=== PATIENT | female | born 1995 | race Caucasian/White ===

== ENCOUNTER 2023-12-12 13:12 | Outpatient (CLI) | payer OTHER, SELFPAY ==
--- NOTE | ~2023-12-12 | US_ITS ---
EXAMINATION: US OB <= 14 weeks fetus DATE: 12/12/2023 13:36 INDICATION: with inconclusive viability. TECHNIQUE: Real-time transabdominal pelvic ultrasound was performed. COMPARISON: None. FINDINGS: The uterus measures 9.8 x 6.1 x 6.3 cm. There is an intrauterine gestational sac. A yolk sac is ident ified. The crown rump length measures 1.9 cm, which correlates with an estimated gestational a ge of 8 weeks and 3 day(s) (+/-) 5 day(s). heart motion is identified measuring 171 beats per m inute (bpm) by M-mode Doppler. The ovaries are not visualized. There is no free fluid in the pelvis. IMPRESSION: 1. Single living intrauterine gestation with estimated date of delivery of 07/20/2024. Reviewed, dictated and finalized at location E. IMPRESSION: 1. Single living intrauterine gestation with estimated date of delivery of 07/03.
== END 2023-12-12 13:13 ==
LOC: MICIMG 13:14
PROVIDERS: PCP Advanced Practice Midwife; Visit Provider Advanced Practice Midwife
DX: O36.80X0 Pregnancy with inconclusive fetal viability, not applicable or unspecified (principal); Z3A.00 Weeks of gestation of pregnancy not specified
CPT/HCPCS: 76801

== ENCOUNTER 2024-02-19 14:43 | Outpatient (CLI) | payer OTHER, SELFPAY ==
--- NOTE | ~2024-02-19 | US_ITS ---
EXAMINATION: US OB /maternal detail DATE: 02/19/2024 15:14 INDICATION: Assess anatomy during second trimester . TECHNIQUE: Multiple obstetric sonographic images performed. FINDINGS: There is a single living fetus in transverse lie with vertex to maternal left. The placenta is anter ior and low-lying with caudal margin approximately 3.5 cm from the region of the internal cervical os which is poorly visualized on transabdominal imaging. Amniotic fluid volume is subjectively normal. heart rate of 139 beats per minute. The following anatomy was identified as normal: Ventricles, choroid plexus, falx and cava septum pellucidum Cerebellum and cisterna magna Nuchal fold Upper lip Spine Heart Diaphragm Stomach Kidneys Bladder 3 vessel cord and cord insertion Bilateral upper and lower extremities including hands and feet The following biometric data were obtained: BPD: 4.1 cm -> 18 weeks 3 days Head circumference: 15.6 cm -> 18 weeks 4 days Abdominal circumference: 12.8 cm -> 18 weeks 2 days Femur length: 2.9 cm -> 18 weeks 6 days These measurements are concordant. Head circumference to abdominal circumference ratio: 1.22 (normal range 1.09-1.27). Estimated weight: 247 g (+/-) 37 g. or 9 oz. (+/-) 1 oz. IMPRESSION: 1. Single living fetus with transverse lie with heart rate of 139 bpm. 2. Gestational age by ultrasound of 18 weeks 4 day(s) (+/-) 1 week 2 day(s) with ultrasound estimat ed date of delivery (KATLYN) of 07/18/2024. Estimated weight is 63rd percentile by Hadlock criteria when 07/20/2024 is used as the KATLYN. Please correlate with clinical information or earlier ultrasounds for most accurate KATLYN. 3. Normal survey. Reviewed, dictated and finalized at location B. IMPRESSION: 1. Single living fetus with transverse lie with heart rate of 139 bpm. 2. Gestational age by ultrasound of 18 weeks 4 day(s) (+/-) 1 week 2 day(s) w ith ultrasound estimated date of delivery (KATLYN) of 07/18/2024. Estimated w eight is 63rd percentile by Hadlock criteria when 07/20/2024 is used as the KATLYN. Please correlate with clinical information or earlier ultrasounds for most acc urate KATLYN. 3. Normal survey.
== END 2024-02-19 14:44 | disposition home or self-care (01) ==
LOC: MICIMG 14:43
PROVIDERS: PCP Advanced Practice Midwife; Visit Provider Advanced Practice Midwife
DX: Z36.9 Encounter for antenatal screening, unspecified (principal); Z3A.18 18 weeks gestation of pregnancy
CPT/HCPCS: 76805

== ENCOUNTER 2024-05-27 15:20 | Outpatient (CLI) | payer OTHER, SELFPAY ==
--- NOTE | ~2024-05-27 | US_ITS ---
EXAMINATION: US OB follow up DATE: 05/27/2024 15:38 INDICATION: Size greater than dates. Third trimester. TECHNIQUE: Real-time ultrasound of the pelvis was performed. COMPARISON: Ultrasound 02/19/2024, 12/12/2023 FINDINGS: There is a single living fetus in vertex presentation. The placenta is anterior. heart rate is 140 beats per minute (bpm). The amniotic fluid index is 16.9 cm, which is normal. The following biometric data were obtained: Biparietal diameter (BPD): 8.2 cm; head circumference (HC): 29.6 cm; abdominal circumference (AC): 28 .1 cm; femur length (FL): 6.1 cm. These measurements are concordant. Estimated weight is 1905 g +/- 286 g, which correlates with the 34th percentile when 07/20/24 is used as estimated date of delivery. As single measurements, these parameters are each equal to the following estimated gestational ages: BPD: 33 weeks 1 days. HC: 32 weeks 5 days. AC: 32 weeks 1 days. FL: 31 weeks 4 days. estimated gestational age based solely on measurements from this exam is 32 weeks 3 days +/- 2 weeks 2 days. IMPRESSION: 1. Single living fetus in vertex presentation. 2. Estimated weight is 1905 g +/- 286 g, which correlates with the 34th percentile when 5 is used as estimated date of delivery. This date was set by ultrasound on 12/12/2023. Reviewed, dictated and finalized at location A. GEMENT DEVELOPER IMPRESSION: 1. Single living fetus in vertex presentation. 2. Estimated weight is 1905 g +/- 286 g, which correlates with the 34th percentile when 07/20/24 is used as estimated date of delivery. This date was se t by ultrasound on 12/12/2023.
== END 2024-05-27 15:21 | disposition home or self-care (01) ==
LOC: MICIMG 15:21
PROVIDERS: PCP Advanced Practice Midwife; Visit Provider Advanced Practice Midwife
DX: O36.63X0 Maternal care for excessive fetal growth, third trimester, not applicable or unspecified (principal); Z3A.00 Weeks of gestation of pregnancy not specified
CPT/HCPCS: 76816

== ENCOUNTER 2024-06-09 13:03 | Outpatient (CLI) | payer OTHER, SELFPAY ==
[2024-06-09 13:32] VITALS: BP 131/69; PULSE 106; RESP 16; TEMP 36.7; BMI 33.8
[2024-06-09 13:46] VITALS: BP 119/66; PULSE 108
[2024-06-09 13:49] LABS: Basophils Percent Auto 0.2 % (0.2-1.2); Eosinophils Percent Auto 0.3 % (0-4.4); Hematocrit 34.3 % (37.0-47.0); Hemoglobin 11.3 g/dL (12.0-15.0); Immature Granulocyte Absolute 0.05 K/mm3 (0.00-0.031); Immature Granulocyte Percent A 0.5 % (0-0.5); Lymphocytes Absolute Auto 2.14 K/mm3 (0.9-3.2); Lymphocytes Percent Auto 19.7 % (18.3-44.2); Mean Corpuscular HGB Conc 32.9 g/dl (32-36); Mean Corpuscular Hemoglobin 32.3 pg (26-34); Mean Platelet Volume 10.1 fl (7.4-10.4); Monocytes Absolute Auto 0.4 K/mm3 (0.1-0.6); Monocytes Percent Auto 3.8 % (2.6-8.5); Neutrophils Absolute Auto 8.2 K/mm3 (1.3-6.7); Neutrophils Percent Auto 75.5 % (45.5-73.1); Platelet Count Result 172 k/mm3 (150-375); Red Cell Distribution Width 13.1 % (11.5-14.5); White Blood Count 10.9 K/mm3 (4.5-10.0)
[2024-06-09 13:54] VITALS: BP 119/66; PULSE 108
[2024-06-09 13:58] LABS: Creatinine Urine 82.3 mg/dL
[2024-06-09 14:01] VITALS: BP 113/67; PULSE 105
[2024-06-09 14:10] LABS: Alanine Aminotransferase 13 U/L (6-35); Alkaline Phosphatase 84 U/L (38-126); Anion Gap 4 mmol/L (4-12); Aspartate Amino Transferase 18 U/L (14-36); Bilirubin,Total 0.4 mg/dL (0.2-1.3); Blood Urea Nitrogen 8 mg/dL (7-17); Calcium 8.3 mg/dL (8.4-10.2); Carbon Dioxide 20 mmol/L (22-30); Chloride 110 mmol/L (98-107); Estimated Glomerular Filt Rate > 60; Glucose 110 mg/dL (65-110); Potassium 3.6 mmol/L (3.4-5.0); Sodium 134 mmol/L (137-145); Uric Acid 4.7 mg/dL (2.5-7.5)
[2024-06-09 14:14] LABS: Total Protein Urine Random < 5 mg/dL; Ur Ttl Prot Creatinine Ratio < 0.06 mg/mg (0-0.20)
[2024-06-09 14:16] VITALS: BP 117/69; PULSE 105
[2024-06-09 14:24] LABS: Add Urine Microscopic? YES; Appearance Urine Clear (Clear); Bacteria Urine 1+ /hpf; Bilirubin Urine Negative (Negative); Blood Urine Negative (Negative); Color Urine Yellow (Yellow); Glucose Urine UA Negative (Negative); Ketones Urine Negative (Negative); Leukocyte Esterase Ur 1+ LEU/UL (Negative); Need Manual Microscopic Reviewed; Nitrate Urine Negative (Negative); Non Pathogenic Casts 0-2; Protein Urine Negative (Negative); RBC Urine 0-2 /hpf (0-2); Specific Grav Ur 1.018 (1.001-1.035); Squamous Epithelial Cell Urine Occasional /hpf (Few); Urobilinogen Urine 0.2 mg/dL (<2.0)
[2024-06-09 14:31] VITALS: BP 121/67; PULSE 104
--- NOTE | 2024-06-09 14:37 | PC.NURSE ---
Dr. Patton informed of this pt that was sent over from the office due to BP's being higher than her normal and headache earlier today with double vision at times. Informed of reactive NST, BP's, lab results. OK to discharge pt to home, but would like pt sent home with 24 hr urine supplies for baseline 24 hr urine.
== END 2024-06-09 14:49 | disposition home or self-care (01) ==
LOC: ANHOBOP 13:16 → ANHOBPP 13:18
PROVIDERS: Visit Provider Obstetrics & Gynecology Gynecology
DX: O13.9 Gestational [pregnancy-induced] hypertension without significant proteinuria, unspecified trimester (principal); Z3A.00 Weeks of gestation of pregnancy not specified
CPT/HCPCS: 36415; 59025; 80053; 81001; 82570; 84156; 84550; 85025; 87086

== ENCOUNTER 2024-06-10 17:27 | Outpatient (NON) | payer OTHER, SELFPAY ==
[2024-06-10 17:42] VITALS: BMI 33.8
[2024-06-10 18:39] LABS: Collection Time Urine 24 HOURS
[2024-06-10 18:40] LABS: Patient Weight 222 Lbs; Total Volume 24 Hour Urine 1900 ml
[2024-06-10 18:43] LABS: Serum Creat 0.49
[2024-06-10 18:55] LABS: Creatinine Clearance Urine 196.9 ml/min (75-125)
[2024-06-10 19:12] LABS: Total Protein Urine 24 Hr 95 mg/24hr (28-141); Total Protein Urine Random < 5 mg/dL
== END 2024-06-10 17:28 | disposition home or self-care (01) ==
LOC: ANHOBOP 17:40
PROVIDERS: Visit Provider Obstetrics & Gynecology Gynecology
DX: O13.9 Gestational [pregnancy-induced] hypertension without significant proteinuria, unspecified trimester (principal); Z3A.00 Weeks of gestation of pregnancy not specified
CPT/HCPCS: 81050; 82575; 84156

== ENCOUNTER 2024-07-09 23:51 | Observation (INO) | payer OTHER, SELFPAY ==
--- OUTSIDE RECORDS SUMMARY | 2024-07-09 23:37 | XMS_ITS | Continuity of Care Document ---
Author Name [facility] Organization [facility] Care Team Providers Care Log Data Technician Name Role Phone [facility] Unavailable Unavailable Medications Combined list of outpatient medications from Department of Defense and Veterans Affairs facilities.Medications provided include 1) outpatient medications from the last 15 months, and 2) patient-reported medications. Medication Details Route Status Patient Instructions Prescription Expires Prescription Number Last Dispense Date Ordering Provider Order Date Order Qty Source AZITHROMYCI N (AZITHROMYC IN), 250MG, TABLET, ORAL, [employer], 6 ea. BLIST PACK Active [id number] 2023 6 Pharmac y Data Transac tion Service Facilit y LEVOCETIRIZ INE DIHYDROCHLO RIDE (LEVOCETIRI ZINE DIHYDROCHLO RIDE), 5 MG, TABLET, ORAL, [facility], 90 ea. BOTTLE Active [id number] 2023 10 Pharmac y Data Transac tion Service Facilit y PROMETHAZIN E-DM (promethazi ne HCl/dextrom ethorphan HBr), 6.25-15/5, SYRUP, ORAL, [facility], 473 ml BOTTLE Active [id number] 2023 120 Pharmac y Data Transac tion Service Facilit y Allergies, Adverse Reactions, Alerts Combined list of allergies from Department of Defense and Veterans Affairs facilities. It does not include entries that were removed or entered in error. Substance Category Reaction Severity Reaction type Status Date Reported Comments Source No Known Allergies Drug allergy (disorder) active 12/13/2020 [facility] Immunizations Combined list of available immunizations from the Department of Defense and Veterans Affairs facilities. 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 Status Comments Source influenza, injectable, quadrivalent- pf 2022 zzRig ht Arm [id number] 150 GlaxoSmithKli ne complet ed influenza , injectabl e, quadrival ent-pf 06/11/22 Given Ambulat ory Pharmac y Influenza, injectable, quadrivalent, preservative free 1 2022 Unknown, Provider [id number] Jade LeivaKline (SKB) complet ed Influenza , injectabl e, quadrival ent, preservat sumanth free DoD COVID Vaccine Pfizer 2021 zzMaximiliano ht Arm [id number] PFIZER complet ed COVID Vaccine Pfizer 08/27/21 Given Ambulat ory Pharmac y SARS-COV-2 (COVID-19) vaccine, mRNA, spike protein, LNP, preservative free, 30 mcg/0.3mL dose 1 2021 Unknown, Provider [id number] Pfizer, Inc (PFR) complet ed SARS-COV- 2 (COVID-19 ) vaccine, mRNA, spike protein, LNP, preservat sumanth free, 30 mcg/0.3mL dose DoD Encounters Combined list of: 1) Encounters from Department of Veterans Affairs facilities going backup to the last 18 months, not all VA inpatient encounters are included; 2) Encounters from the Department of Defense facilities going backup to 280 months. Location Location Details Encounter Type Encounter Number Reason For Visit Attending Provider ADM Date DC Date Status Disposition Source [facility] Exception al Family Mbr Pgm) OUTPATIENT [id number] Notes Entered by: FROYLAN PATRICK 17 Feb 2020 0740 ------- ------- ------- ------- -- Command Sponsor [facility] 1040- HEMA TYLER 02/16 Released w/o Limitations [facility] Excepti onal Family Mbr Pgm) [facility] Women's Health) TELE CONSULT [id number] Notes Entered by: ARLYN MITCHELL 11 Dec 2020 1044 ------- ------- ------- ------- -- pregnan cy test JORGE ZUÑIGA 12/11 [facility] Women's Health) [facility] Women's Health) OUTPATIENT [id number] Notes Entered by: SHANNON SUNSHINE TOLU 13 Dec 2020 1416 ------- ------- ------- ------- -- vitals for pregnan cy CSSP JORGE ZUÑIGA TOLU 12/13 Released w/o Limitations [facility] Women's Health) [facility] Clinic Team C) TELE CONSULT [id number] Notes Entered by: AMISH HAMILTON 15 Feb 2021 1405 ------- ------- ------- ------- -- Network Results -OBGYN- Report Date JORGE ZUÑIGA TOLU 02/15 [facility] Clinic Team C) [facility] Women's Health) TELE CONSULT [id number] Notes Entered by: LETICIA STAPLES 17 May 2021 0923 ------- ------- ------- ------- -- breast pump KAYLAN BARBER 05/17 [facility]'s Health) [facility] Clinic Team C) TELE CONSULT [id number] Notes Entered by: AMISH HAMILTON 09 Jun 2021 1346 ------- ------- ------- ------- -- Network Results -OBGYN- 06 Mar 2021 PAGE GEORGE 06/09 [facility] Clinic Team C) [facility] Women's Health) TELE CONSULT [id number] Notes Entered by: DOMENICA SUNG 26 Jul 2021 1131 ------- ------- ------- ------- -- Network Results -Labs-0 04 May 2021 PAGE GEORGE 07/26 [facility]) [facility] Clinic Team C) OUTPATIENT [id number] Back Pain and coughin g BEBA CASIANO 09/21 [facility] Limitations [facility] OUTPATIENT [id number] LETICIA SACHI W 09/24 [facility]ased w/o Limitations [facility]) [facility] Clinic Team C) OUTPATIENT [id number] f/u [facility] ER- pneumon ia BEBA CASIANO 10/05 [facility] w/o Limitations [facility]) [facility]) TELE CONSULT [id number] Notes Entered by: Shahzad GONZALEZ 31 Oct 2021 1544 ------- ------- ------- ------- -- Needs Dysplas ia JORGE Cano 10/31 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 21 PAGE GEORGE 12/07 [facility]) [facility]) OUTPATIENT [id number] Pap (had abnorma l off-bas e LSIL/HP V pos, Dec 20, Apr 22, Sep 21) KELSY CORONA 12/19 Released w/o Limitations [facility] Women's Health) [facility] Women's [facility]) OUTPATIENT [id number] Colposc opy KELSY CORONA 01/14 Released w/o Limitations [facility] Women's Health) [facility] Women's [facility]) TELE CONSULT [id number] Notes Entered by: UZAIR CORONA 21 Jan 2022 1057 ------- ------- ------- ------- -- Needs 1 year f/u JORGE ZUÑIGA 01/21 Released to Self Care [facility] Women's [facility]) [facility] Clinic Team C) TELE CONSULT [id number] Notes Entered by: BEBA CASIANO 22 Jan 2022 1753 ------- ------- ------- ------- -- BEBA Sandoval 01/22 [facility] Clinic Team C) [facility] Clinic Team C) TELE CONSULT [id number] Notes Entered by: CRYSTAL PEACE 13 May 2022 0723 ------- ------- ------- ------- -- KAYLAN Kumar 05/13 Released to Self Care [facility]) [facility] Optometry ) OUTPATIENT [id number] eye exam ASIF GOODWIN 07/11 Released w/o Limitations [facility] Optomet ry) Procedures Combined list of: 1) Procedures from Department of Veterans Affairs facilities [facility], not all VA non-surgical procedures are included; 2) All procedures from the Department of Defense facilities. Procedure Procedure Type Code Date Perfomer Comments Sourc e No data available for this section Ambulato ry Pharmacy DETERMINATION OF REFRACTIVE STATE DoD TELE ASSESS & MGT SRV PROV QUAL NONPHYS HLTH CARE PRO TO EST PAT,PARENT,GUARD NOT ORIG REL ASSESS & MGT SRV PROV W/IN PREV 7 DAYS NOR LEAD ASSESS & MGT SRV/PX W/IN NXT 24 HR/SOON APT;5-10 MIN MED DIS DoD TELE ASSESS & MGT SRV PROV QUAL NONPHYS HLTH CARE PRO TO EST PAT,PARENT,GUARD NOT ORIG REL ASSESS & MGT SRV PROV W/IN PREV 7 DAYS NOR LEAD ASSESS & MGT SRV/PX W/IN NXT 24 HR/SOON APT;5-10 MIN MED DIS [facility] BRIEF EMOTIONAL/BEHAVIORAL ASSESSMENT (EG, DEPRESSION INVENTORY, ATTENTION-DEFICIT/HY PERACTIVITY DISORDER [ADHD] SCALE), WITH SCORING AND DOCUMENTATION, PER STANDARDIZED INSTRUMENT [facility] BRIEF EMOTIONAL/BEHAVIORAL ASSESSMENT (EG, DEPRESSION INVENTORY, ATTENTION-DEFICIT/HY PERACTIVITY DISORDER [ADHD] SCALE), WITH SCORING AND DOCUMENTATION, PER STANDARDIZED INSTRUMENT DoD TELE ASSESS & MGT SRV PROV QUAL NONPHYS HLTH CARE PRO TO EST PAT,PARENT,GUARD NOT ORIG REL ASSESS & MGT SRV PROV W/IN PREV 7 DAYS NOR LEAD ASSESS & MGT SRV/PX W/IN NXT 24 HR/SOON APT;5-10 MIN MED DIS [facility] INFECTIOUS AGENT ANTIGEN DETECTION BY IMMUNOASSAY WITH DIRECT OPTICAL (IE, VISUAL) OBSERVATION; INFLUENZA DoD TELE ASSESS & MGT SRV PROV QUAL NONPHYS HLTH CARE PRO TO EST PAT,PARENT,GUARD NOT ORIG REL ASSESS & MGT SRV PROV W/IN PREV 7 DAYS NOR LEAD ASSESS & MGT SRV/PX W/IN NXT 24 HR/SOON APT;5-10 MIN MED DIS DoD TELE ASSESS & MGT SRV PROV QUAL NONPHYS HLTH CARE PRO TO EST PAT,PARENT,GUARD NOT ORIG REL ASSESS & MGT SRV PROV W/IN PREV 7 DAYS NOR LEAD ASSESS & MGT SRV/PX W/IN NXT 24 HR/SOON APT;5-10 MIN MED DIS 021 [facility] BEHAVIORAL HEALTH OUTREACH SERVICE (PLANNED APPROACH TO REACH A TARGETED POPULATION) 020 DoD Behavioral health outreach service (planned approach to reach a targeted population) JERARDO MERLOS [facility] Non-Physician Phone Call To Patient/Provider Brief (5-10min) Non-Physician Phone Call To Patient/Provider Brief (5-10min) [id number] JORGE ZUÑIGA [facility] Psychometric Emotional / Behavioral A e ment Psychometric Emotional / Behavioral Assessment [id number] KELSY CORONA [facility] Colposcopy Cervix With Biopsy(s) With Endocervical Curettage Colposcopy Cervix With Biopsy(s) With Endocervical Curettage [id number] KELSY CORONA Colposcopy Cervix With Biopsy(s) At ___ O'clock Colposcopy Cervix With Biopsy(s) At ___ O'clock [id number] KELSY CORONA Ophthalmological New Patient Start Comprehensive Care Ophthalmological New Patient Start Comprehensive Care [id number] ASIF GOODWIN Determination Of Refractive State Determination Of Refractive State [id number] ASIF GOODWIN [facility] Social History Combined list of available smoking, tobacco, and other social history from Department of Defense and Veterans Affairs facilities. Social History Type Response Date Comment Sourc e This section is an empty social history section. [facility] Assessment and Plan Combined list of future care activities from Department of Defense and Veterans Affairs facilities (e.g., assessment and plan notes, appointments, orders, and referrals). Additional future care activities may be listed in the Plan of Care section. Result Assessment and Plan Date Source Assessment and Plan No data available for this section 07/10/2024 Ambulatory Pharmacy Functional Status Combined list of recent functional and cognitive assessments recorded at Department of Defense and Veterans Affairs (VA).VA Functional Martin Measurement (FIM) Scale: 1 = Total Assistance (Subject = 0% +), 2 = Maximal Assistance (Subject = 25% +), 3 = Moderate Assistance (Subject = 50% +), 4 = Minimal Assistance (Subject = 75% +), 5 = Supervision, 6 = Modified Martin (Device), 7 = Complete Martin (Timely, Safely). Assessment Date/Time Source Assessment Type Assessment Skill Assessment Score Assessment Details No data available for this section
--- NOTE | 2024-07-09 23:48 | OBADM ---
This patient, Silvia Ellison, admitted to the OB room Labor/Delivery/Recovery 106 for observation. Patient/family oriented to hospital policies and general routines including ID bracelet, bed and alarms, visiting hours, pain management, procedures, bathroom and other care routines, personal items, smoking policy, room service/diet, and visiting hours. Patient/Family are encouraged to report perceived risks to care and to ask questions if they do not understand what they are told or what they should do.
--- NOTE | 2024-07-10 00:08 | PC.NURSE ---
Patient came in tonight with c/o contractions being every 2 min apart for the last hour. After an hour of the patient being here she requested to go home. she was checked again and made no change. the patient stated she was hardly feeling her contractions and would like to go home
--- OUTSIDE RECORDS SUMMARY | 2024-07-12 12:12 | XMS_ITS | Continuity of Care Document ---
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 BLIST PACK Active [id number] 2023 6 Pharmac y Data Transac tion Service Facilit y LEVOCETIRIZ INE DIHYDROCHLO RIDE (LEVOCETIRI ZINE DIHYDROCHLO RIDE), 5 MG, TABLET, ORAL, [facility], 90 ea. BOTTLE Active [id number] 4 2023 10 Pharmac y Data Transac tion Service Facilit y PROMETHAZIN E-DM (promethazi ne HCl/dextrom ethorphan HBr), 6.25-15/5, SYRUP, ORAL, [facility], 473 ml BOTTLE Active [id number] 4 2023 120 Pharmac y Data Transac tion Service Facilit y Allergies, Adverse Reactions, Alerts Combined list of allergies from Department of Defense and Veterans Affairs facilities. It does not include entries that were removed or entered in error. Substance Category Reaction Severity Reaction type Status Date Reported Comments Source No Known Allergies Drug allergy (disorder) active 12/13/2020 [facility] Immunizations Combined list of available immunizations from the Department of Defense and Veterans Affairs facilities. Immunization Series Date Given Administered By Site Reaction Lot Number CVX Code Drug Gravel Hauler Status Comments Source influenza, injectable, quadrivalent- pf 2022 zzRig ht Arm [id number] 150 GlaxoSmithKli ne complet ed influenza , injectabl e, quadrival ent-pf 06/11/22 Given Ambulat ory Pharmac y Influenza, injectable, quadrivalent, preservative free 1 2022 Unknown, Provider [id number] Jade LeivaKline (SKB) complet ed Influenza , injectabl e, quadrival ent, preservat sumanth free DoD COVID Vaccine Pfizer 2021 zzMaximiliano ht Arm [id number] PFIZER complet ed COVID Vaccine Pfizer 08/27/21 Given Ambulat ory Pharmac y SARS-COV-2 (COVID-19) vaccine, mRNA, spike protein, LNP, preservative free, 30 mcg/0.3mL dose 1 2021 Unknown, Provider [id number] Pfizer, Inc (PFR) complet ed SARS-COV- [...] Date DC Date Status Disposition Source [facility] Exception al Family Mbr Pgm) OUTPATIENT [id number] Notes Entered by: FROYLAN PATRICK 17 Feb 2020 0740 ------- ------- ------- ------- -- Command Sponsor [facility] 1040- HEMA TYLER 02/16 Released w/o Limitations [facility] Excepti onal Family Mbr Pgm) [facility] Women's Health) TELE CONSULT [id number] Notes Entered by: ARLYN MITCHELL 11 Dec 2020 1044 ------- ------- ------- ------- -- pregnan cy test JORGE ZUÑIGA 12/11 [facility] Women's Health) [facility] Women's Health) OUTPATIENT [id number] Notes Entered by: SHANNON SUNSHINE TOLU 13 Dec 2020 1416 ------- ------- ------- ------- -- vitals for pregnan cy CSSP JORGE ZUÑIGA TOLU 12/13 Released w/o Limitations [facility] Women's Health) [facility] Clinic Team C) TELE CONSULT [id number] Notes Entered by: AMISH HAMILTON 15 Feb 2021 1405 ------- ------- ------- ------- -- Network Results -OBGYN- Report Date JORGE ZUÑIGA TOLU 02/15 [facility] Clinic Team C) [facility] Women's Health) TELE CONSULT [id number] Notes Entered by: LETICIA STAPLES 17 May 2021 0923 ------- ------- ------- ------- -- breast pump KAYLAN BARBER 05/17 [facility]'s Health) [facility] Clinic Team C) TELE CONSULT [id number] Notes Entered by: AMISH HAMILTON 09 Jun 2021 1346 ------- ------- ------- ------- -- Network Results -OBGYN- 06 Mar 2021 PAGE GEORGE 06/09 [facility] Clinic Team C) [facility] Women's Health) TELE CONSULT [id number] Notes Entered by: DOMENICA SUNG 26 Jul 2021 1131 ------- ------- ------- ------- -- Network Results -Labs-0 04 May 2021 PAGE GEORGE 07/26 [facility]'s Health) [facility] Clinic Team C) OUTPATIENT [id number] Back Pain and coughin g BEBA CASIANO 09/21 [facility] Limitations [facility]PATIENT [id number] LETICIA SACHI W 09/24 [facility] w/o Limitations [facility]) [facility] Clinic Team C) OUTPATIENT [id number] f/u [facility] ER- pneumon ia BEBA CASIANO 10/05 Released w/o Limitations [facility] Clinic Team C) [facility]) TELE CONSULT [id number] Notes Entered by: Shahzad GONZALEZ 31 Oct 2021 1544 ------- ------- ------- ------- -- Needs Dysplas ia JORGE Cano 10/31 Referred for Appointment [facility]) [facility] Clinic Team C) TELE CONSULT [id number] Notes Entered by: BEBA CASIANO 09 Nov 2021 1246 ------- ------- ------- ------- -- follow up PNA BEBA CASIANO 11/09 [facility] Clinic Team C) TELE CONSULT [id number] Notes Entered by: Dru APARICIO 07 Dec 2021 1209 ------- ------- ------- ------- -- Network Results - OB-TIPPLE BOSS - Sep 21 PAGE GEORGE 12/07 [facility] Clinic Team C) [facility]) OUTPATIENT [id number] Pap (had abnorma l off-bas e LSIL/HP V pos, Dec 20, Apr 22, Sep 21) KELSY CORONA 12/19 Released w/o Limitations [facility] Women's Health) [facility] Women's [facility]) OUTPATIENT [id number] Colposc opy KELSY CORONA 01/14 Released w/o Limitations [facility] Women's Health) [facility] Women's [facility]) TELE CONSULT [id number] Notes Entered by: UZAIR CORONA 21 Jan 2022 1057 ------- ------- ------- ------- -- Needs 1 year f/u JORGE ZUÑIGA 01/21 Released to Self Care [facility] Women's [facility]) [facility] Clinic Team C) TELE CONSULT [id number] Notes Entered by: BEBA CASIANO 22 Jan 2022 1753 ------- ------- ------- ------- -- BEBA Sandoval 01/22 [facility] Clinic Team C) [facility] Clinic Team C) TELE CONSULT [id number] 7 Notes Entered by: CRYSTAL PEACE 13 May 2022 0723 ------- ------- ------- ------- -- KAYLAN Kumar 05/13 Released to Self Care [facility] Clinic Team [facility] Optometry ) OUTPATIENT [id number] eye exam ASIF GOODWIN 07/11 Released w/o Limitations [facility] Optomet ry) Procedures Combined list of: 1) Procedures from Department of Veterans Affairs facilities [facility], not all VA non-surgical procedures are included; 2) All procedures from the Department of Defense facilities. Procedure Procedure Type Code Date Perfomer Comments Sourc e No data available for this section Ambulato ry Pharmacy Behavioral health outreach service (planned approach to reach a targeted population) JERARDO MERLOS [facility] Non-Physician Phone Call To Patient/Provider Brief (5-10min) Non-Physician Phone Call To Patient/Provider Brief (5-10min) [id number] JOREG ZUÑIGA [facility] Psychometric Emotional / Behavioral A e ment Psychometric Emotional / Behavioral Assessment [id number] KELSY CORONA Colposcopy Cervix With Biopsy(s) With Endocervical Curettage Colposcopy Cervix With Biopsy(s) With Endocervical Curettage [id number] KELSY CORONA Colposcopy Cervix With Biopsy(s) At ___ O'clock Colposcopy Cervix With Biopsy(s) At ___ O'clock [id number] KELSY CORONA Ophthalmological New Patient Start Comprehensive Care Ophthalmological New Patient Start Comprehensive Care [id number] ASIF GOODWIN Determination Of Refractive State Determination Of Refractive State 83516 ASIF GOODWIN DETERMINATION OF REFRACTIVE STATE 023 DoD TELE ASSESS & MGT SRV PROV QUAL NONPHYS HLTH CARE PRO TO EST PAT,PARENT,GUARD NOT ORIG REL ASSESS & MGT SRV PROV W/IN PREV 7 DAYS NOR LEAD ASSESS & MGT SRV/PX W/IN NXT 24 HR/SOON APT;5-10 MIN MED DIS 022 DoD TELE ASSESS & MGT SRV PROV QUAL NONPHYS HLTH CARE PRO TO EST PAT,PARENT,GUARD NOT ORIG REL ASSESS & MGT SRV PROV W/IN PREV 7 DAYS NOR LEAD ASSESS & MGT SRV/PX W/IN NXT 24 HR/SOON APT;5-10 MIN MED DIS DoD BRIEF EMOTIONAL/BEHAVIORAL ASSESSMENT (EG, DEPRESSION INVENTORY, ATTENTION-DEFICIT/HY PERACTIVITY DISORDER [ADHD] SCALE), WITH SCORING AND DOCUMENTATION, PER STANDARDIZED INSTRUMENT [facility] BRIEF EMOTIONAL/BEHAVIORAL ASSESSMENT (EG, DEPRESSION INVENTORY, ATTENTION-DEFICIT/HY PERACTIVITY DISORDER [ADHD] SCALE), WITH SCORING AND DOCUMENTATION, PER STANDARDIZED INSTRUMENT DoD TELE ASSESS & MGT SRV PROV QUAL NONPHYS HLTH CARE PRO TO EST PAT,PARENT,GUARD NOT ORIG REL ASSESS & MGT SRV PROV W/IN PREV 7 DAYS NOR LEAD ASSESS & MGT SRV/PX W/IN NXT 24 HR/SOON APT;5-10 MIN MED DIS [facility] INFECTIOUS AGENT ANTIGEN DETECTION BY IMMUNOASSAY [...] NXT 24 HR/SOON APT;5-10 MIN MED DIS [facility] BEHAVIORAL HEALTH OUTREACH SERVICE (PLANNED APPROACH TO REACH A TARGETED POPULATION) [facility] Social History Combined list of available smoking, tobacco, and other social history from Department of Defense and Veterans Affairs facilities. Social History Type Response Date Comment Sourc e This section is an empty social history section. DoD Assessment and Plan Combined list of future care activities from Department of Defense and Veterans Affairs facilities (e.g., assessment and plan notes, appointments, orders, and referrals). Additional future care activities may be listed in the Plan of Care section. Result Assessment and Plan Date Source Assessment and Plan No data available for this section 07/12/2024 Ambulatory Pharmacy Functional Status Combined list of recent functional and cognitive assessments recorded at Department of Defense and Veterans Affairs ([place]VA Functional [place] Measurement (FIM) Scale: 1 = Total Assistance (Subject = 0% +), 2 = Maximal Assistance (Subject = 25% +), 3 = Moderate Assistance (Subject = 50% +), 4 = Minimal Assistance (Subject = 75% +), 5 = Supervision, 6 = Modified Preston (Device), 7 = Complete Preston (Timely, Safely). Assessment Date/Time Source Assessment Type Assessment Skill Assessment Score Assessment Details No data available for this section
--- NOTE | 2024-07-15 07:51 | PM.OBTRLD ---
OB - Triage/Final Diagnosis Visit Information Reason for evaluation: threatened labor Comments/Additional reasons for admission: I have assessed the risk for this patient, Silvia Ellison, and determined that she would benefit from observation care.
== END 2024-07-09 23:56 | disposition home or self-care (01) ==
PROVIDERS: Admitting Provider Obstetrics & Gynecology Gynecology; Visit Provider Obstetrics & Gynecology Gynecology
DX: O47.1 False labor at or after 37 completed weeks of gestation (principal); Z3A.38 38 weeks gestation of pregnancy
CPT/HCPCS: G0378; G0379

== ENCOUNTER 2024-07-18 05:00 | Inpatient (IN) | payer OTHER, SELFPAY ==
[2024-07-18] VITALS (104 sets, daily range): BP systolic 85–135; BP diastolic 47–96; PULSE 77–138; RESP 18; TEMP 36.8–37.5; O2SAT 96–100; BMI 34.2
--- OUTSIDE RECORDS SUMMARY | 2024-07-18 05:06 | XMS_ITS | Continuity of Care Document ---
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 BLIST PACK Active [id number] 2023 6 Pharmac y Data Transac tion Service Facilit y LEVOCETIRIZ INE DIHYDROCHLO RIDE (LEVOCETIRI ZINE DIHYDROCHLO RIDE), 5 MG, TABLET, ORAL, [facility], 90 ea. BOTTLE Active [id number] 4 2023 10 Pharmac y Data Transac tion Service Facilit y PROMETHAZIN E-DM (promethazi ne HCl/dextrom ethorphan HBr), 6.25-15/5, SYRUP, ORAL, [facility], 473 ml BOTTLE Active [id number] 4 2023 120 Pharmac y Data Transac tion Service Facilit y Allergies, Adverse Reactions, Alerts Combined list of allergies from Department of Defense and Veterans Affairs facilities. It does not include entries that were removed or entered in error. Substance Category Reaction Severity Reaction type Status Date Reported Comments Source No Known Allergies Drug allergy (disorder) active 12/13/2020 [facility] Immunizations Combined list of available immunizations from the Department of Defense and Veterans Affairs facilities. 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 Activities Clerk Status Comments Source influenza, injectable, quadrivalent- pf 2022 zzRig ht Arm [id number] 150 GlaxoSmithKli ne complet ed influenza , injectabl e, quadrival ent-pf 06/11/22 Given Ambulat ory Pharmac y Influenza, injectable, quadrivalent, preservative free 1 2022 Unknown, Provider [id number] Jade LeivaKline (SKB) complet ed Influenza , injectabl e, quadrival ent, preservat sumanth free DoD COVID Vaccine Pfizer 2021 zzMaximiliano ht Arm [id number] PFIZER complet ed COVID Vaccine Pfizer 08/27/21 Given Ambulat ory Pharmac y SARS-COV-2 (COVID-19) vaccine, mRNA, spike protein, LNP, preservative free, 30 mcg/0.3mL dose 1 2021 Unknown, Provider [id number] Pfizer, Inc (PFR) complet ed SARS-COV- [...] ADM Date DC Date Status Disposition Source [facility] Exception al Family Mbr Pgm) OUTPATIENT [id number] Notes Entered by: FROYLAN PATRICK 17 Feb 2020 0740 ------- ------- ------- ------- -- Command Sponsor [facility] 1040- HEMA TYLER 02/16 Released w/o Limitations [facility] Excepti onal Family Mbr Pgm) [facility] Women's Health) TELE CONSULT [id number] Notes Entered by: ARLYN MITCHELL 11 Dec 2020 1044 ------- ------- ------- ------- -- pregnan cy test JORGE ZUÑIGA 12/11 [facility] Women's Health) [facility] Women's Health) OUTPATIENT [id number] Notes Entered by: SHANNON SUNSHINE TOLU 13 Dec 2020 1416 ------- ------- ------- ------- -- vitals for pregnan cy CSSP JORGE ZUÑIGA TOLU 12/13 Released w/o Limitations [facility] Women's Health) [facility] Clinic Team C) TELE CONSULT [id number] Notes Entered by: AMISH HAMILTON 15 Feb 2021 1405 ------- ------- ------- ------- -- Network Results -OBGYN- Report Date JORGE ZUÑIGA TOLU 02/15 [facility] Clinic Team C) [facility] Women's Health) TELE CONSULT [id number] Notes Entered by: LETICIA STAPLES 17 May 2021 0923 ------- ------- ------- ------- -- breast pump KAYLAN BARBER 05/17 [facility]'s Health) [facility] Clinic Team C) TELE CONSULT [id number] Notes Entered by: AMISH HAMILTON 09 Jun 2021 1346 ------- ------- ------- ------- -- Network Results -OBGYN- 06 Mar 2021 PAGE GEORGE 06/09 [facility] Clinic Team C) [facility] Women's Health) TELE CONSULT [id number] Notes Entered by: DOMENICA SUNG 26 Jul 2021 1131 ------- ------- ------- ------- -- Network Results -Labs-0 04 May 2021 PAGE GEORGE 07/26 [facility]'s Health) [facility] Clinic Team C) OUTPATIENT [id number] Back Pain and coughin g BEBA CASIANO 09/21 [facility] w/[facility] Limitations [facility] OUTPATIENT [id number] LETICIA SACHI W 09/24 [facility] w/o Limitations [facility]) [facility] Clinic Team C) OUTPATIENT [id number] f/u [facility] ER- pneumon ia BEBA CASIANO 10/05 [facility]ased w/o Limitations [facility] Clinic Team C) [facility]) TELE CONSULT [id number] Notes Entered by: Shahzad GONZALEZ 31 Oct 2021 1544 ------- ------- ------- ------- -- Needs Dysplas ia JORGE Cano 10/31 [facility]ment [facility]) [facility] Clinic Team C) TELE CONSULT [id number] Notes Entered by: BEBA CASIANO 09 Nov 2021 1246 ------- ------- ------- ------- -- follow up PNA BEBA CASIANO 11/09 [facility]) [facility] Clinic Team C) TELE CONSULT [id number] Notes Entered by: Dru APARICIO 07 Dec 2021 1209 ------- ------- ------- ------- -- Network Results - OB-NET REPAIRER - Sep 21 PAGE GEORGE 12/07 [facility] Clinic Team C) [facility]) OUTPATIENT [id number] Pap (had abnorma l off-bas e LSIL/HP V pos, Dec 20, Apr 22, Sep 21) KELSY CORONA 12/19 Released w/o Limitations [facility] Women's Health) [facility] Women's [facility]) OUTPATIENT [id number] Colposc opy KELSY CORONA 01/14 Released w/o Limitations [facility] Women's Health) [facility] Women's [facility]) TELE CONSULT [id number] Notes Entered by: UZAIR CORONA 21 Jan 2022 1057 ------- ------- ------- ------- -- Needs 1 year f/u JORGE ZUÑIGA 01/21 Released to Self Care [facility] Women[facility]) [facility] Clinic Team C) TELE CONSULT [id number] Notes Entered by: BEBA CASIANO 22 Jan 2022 1753 ------- ------- ------- ------- -- BEBA Sandoval 01/22 [facility] Clinic Team C) [facility] Clinic Team C) TELE CONSULT [id number] Notes Entered by: CRYSTAL PEACE 13 May 2022 0723 ------- ------- ------- ------- -- KAYLAN Kumra 05/13 Released to Self Care [facility] Clinic [facility]) [facility] Optometry ) OUTPATIENT [id number] eye exam ASIF GOODWIN 07/11 Released w/o Limitations [facility] Optomet ry) Procedures Combined list of: 1) Procedures from Department of Veterans Affairs facilities [facility], not all VA non-surgical procedures are included; 2) All procedures from the Department of Defense facilities. Procedure Procedure Type Code Date Perfomer Comments Sourc e No data available for this section Ambulato ry Pharmacy Behavioral health outreach service (planned approach to reach a targeted population) JERARDO MERLOS [facility] Non-Physician Phone Call To Patient/Provider Brief (5-10min) Non-Physician Phone Call To Patient/Provider Brief (5-10min) [id number] JORGE ZUÑIGA [facility] Psychometric Emotional / Behavioral A e ment Psychometric Emotional / Behavioral Assessment [id number] KELSY CORONA Colposcopy Cervix With Biopsy(s) With Endocervical Curettage Colposcopy Cervix With Biopsy(s) With Endocervical Curettage 40070 KELSY CORONA Colposcopy Cervix With Biopsy(s) At ___ O'clock Colposcopy Cervix With Biopsy(s) At ___ O'clock 71608 KELSY CORONA Ophthalmological New Patient Start Comprehensive Care Ophthalmological New Patient Start Comprehensive Care [id number] ASIF GOODWIN Determination Of Refractive State Determination Of Refractive State 67288 ASIF GOODWIN DETERMINATION OF REFRACTIVE STATE 023 [...] WITH SCORING AND DOCUMENTATION, PER STANDARDIZED INSTRUMENT [facility] BRIEF EMOTIONAL/BEHAVIORAL ASSESSMENT (EG, DEPRESSION INVENTORY, ATTENTION-DEFICIT/HY PERACTIVITY DISORDER [ADHD] SCALE), WITH SCORING AND DOCUMENTATION, PER STANDARDIZED INSTRUMENT DoD TELE ASSESS & MGT SRV PROV QUAL NONPHYS HLTH CARE PRO TO EST PAT,PARENT,GUARD NOT ORIG REL ASSESS & MGT SRV PROV W/IN PREV 7 DAYS NOR LEAD ASSESS & MGT SRV/PX W/IN NXT 24 HR/SOON APT;5-10 MIN MED DIS [facility] INFECTIOUS AGENT ANTIGEN DETECTION BY IMMUNOASSAY [...] NXT 24 HR/SOON APT;5-10 MIN MED DIS [facility] BEHAVIORAL HEALTH OUTREACH SERVICE (PLANNED APPROACH TO REACH A TARGETED POPULATION) [facility] Social History Combined list of available [...] Plan No data available for this section 07/18/2024 Ambulatory Pharmacy Functional Status Combined list of recent functional and cognitive assessments recorded at Department of Defense and Veterans Affairs ([place]VA Functional [place] Measurement (FIM) Scale: 1 = Total Assistance (Subject = 0% +), 2 = Maximal Assistance (Subject = 25% +), 3 = Moderate Assistance (Subject = 50% +), 4 = Minimal Assistance (Subject = 75% +), 5 = Supervision, 6 = Modified Chase (Device), 7 = Complete Chase (Timely, Safely). Assessment Date/Time Source Assessment Type Assessment Skill Assessment Score Assessment Details No data available for this section
--- NOTE | 2024-07-18 05:15 | LDADM ---
This patient, Silvia Ellison, was admitted to Labor/Delivery/Recovery 107 on 07/18/24 at 05:00. Plans for labor, pain management and were discussed with patient. Patient/family oriented to hospital policies and general routines including ID bracelet, bed and alarms, visiting hours, pain management, procedures, bathroom and other care routines, personal items, smoking policy, room service/diet and guest tray routines, security routines, and visiting hours. Patient/Family are encouraged to report perceived risks to care and to ask questions if they do not understand what they are told or what they should do. See [facility]BI[facility] for further documentation.
[2024-07-18 05:33] LABS: Basophils Percent Auto 0.2 % (0.2-1.2); Eosinophils Percent Auto 0.3 % (0-4.4); Hematocrit 37.9 % (37.0-47.0); Hemoglobin 12.8 g/dL (12.0-15.0); Immature Granulocyte Absolute 0.04 K/mm3 (0.00-0.031); Immature Granulocyte Percent A 0.4 % (0-0.5); Lymphocytes Absolute Auto 2.64 K/mm3 (0.9-3.2); Lymphocytes Percent Auto 28.2 % (18.3-44.2); Mean Corpuscular HGB Conc 33.8 g/dl (32-36); Mean Corpuscular Hemoglobin 32.5 pg (26-34); Mean Corpuscular Volume 96.2 fl (80-100); Mean Platelet Volume 10.3 fl (7.4-10.4); Monocytes Absolute Auto 0.6 K/mm3 (0.1-0.6); Monocytes Percent Auto 6.3 % (2.6-8.5); Neutrophils Absolute Auto 6.1 K/mm3 (1.3-6.7); Neutrophils Percent Auto 64.6 % (45.5-73.1); Platelet Count Result 196 k/mm3 (150-375); Red Blood Count 3.94 M/mm3 (4.2-5.4); Red Cell Distribution Width 13.7 % (11.5-14.5); White Blood Count 9.4 K/mm3 (4.5-10.0)
[2024-07-18] MEDS: LACTATED RINGERS 1,000 ML 125 ML IV CONT ×2 (05:34→09:01)
[2024-07-18] MEDS: OXYTOCIN 30 UNITS/NS 500 ML 30 UNITS/500 ML BAG IV CONT (05:45)
[2024-07-18 06:23] LABS: HIV 1/2 Ab P24 Ag Result Negative (Negative)
--- NOTE | 2024-07-18 08:55 | WPDANESEPP ---
Anes - Eval Pre Procedure Procedure: labor epidural Date/Time: 07/18/24 08:55 Preop Diagnosis: labor pain Pre Op Diagnosis: IOL Patient Data Age: 28 Gender: F Height: 1.73 m Weight: 102 kg Last Vital Signs Temp 37.5 C 07/18/24 06:15 Pulse 98 07/18/24 08:31 BP 126/81 07/18/24 08:31 Pulse Ox 98 07/18/24 05:15 O2 Del Method Room Air 07/18/24 05:15 Allergies Allergy/AdvReac Type Severity Reaction Status Date / Time No Known Allergies Allergy Verified 06/21/24 13:33 Home Medications ?Medication ?Instructions ?Recorded ?Confirmed ?Type cholecalciferol (vitamin D3) 50 4,000 unit PO DAILY 06/09/24 06/21/24 History mcg (2,000 unit) tablet (Vitamin D3) vit no.95-ferrous 1 tablet PO DAILY 06/09/24 06/21/24 History fumarate 28 mg-folic acid 800 mcg tablet () Laboratory Tests 07/18/24 05:28 WBC 9.4 K/mm3 (4.5-10.0) RBC 3.94 L M/mm3 (4.2-5.4) Hgb 12.8 g/dL (12.0-15.0) Hct 37.9 % (37.0-47.0) MCV 96.2 fl (80-100) MCH 32.5 pg (26-34) MCHC 33.8 g/dl (32-36) RDW 13.7 % (11.5-14.5) Plt Count 196 k/mm3 (150-375) MPV 10.3 fl (7.4-10.4) Immature Gran % (Auto) 0.4 % (0-0.5) Neut % (Auto) 64.6 % (45.5-73.1) Lymph % (Auto) 28.2 % (18.3-44.2) Vance % (Auto) 6.3 % (2.6-8.5) Eos % (Auto) 0.3 % (0-4.4) Baso % (Auto) 0.2 % (0.2-1.2) Lymph # (Auto) 2.64 K/mm3 (0.9-3.2) Vance # (Auto) 0.6 K/mm3 (0.1-0.6) Eos # (Auto) 0.0 K/mm3 (0-0.3) Baso # (Auto) 0.0 K/mm3 (0.0-0.1) Abs Immat Gran (auto) 0.04 H K/mm3 (0.00-0.031) Absolute Neuts (auto) 6.1 K/mm3 (1.3-6.7) Absolute Nucleated RBC 0.000 K/mm3 (0.0-0.012) Nucleated RBC % 0.0 % (0.0-0.2) RPR Pending HIV 1&2 Ab/P24 Ag 4thGn Negative (Negative) Blood Type O Positive Antibody Screen Negative Patient hx anesthesia problems: none Family hx anesthesia problems: none Results Review: All pre-operative results and documents have been reviewed as part of the pre-operative evaluation. [facility] Family History Family History Father Acute myocardial infarction Grandparent Brain cancer Social History Social History Smoking status: Never smoker Second hand tobacco smoke exposure: No Substance use: never Do You Feel Safe in your Home?: Yes Lack of Transportation: No Lack of Food: Never True Current Housing: I Have Housing Concerned About Future Housing: No Difficulty Paying Gas/Electric Bills: No Difficulty Paying for Meds: No Currently Unemployed: No Education: High School Diploma/GED Difficulty w/ Childcare or Family Care: No Spiritual care concerns: No Exam Day of Procedure 07/18/24 08:55 Patient weight: obese Heart: regular rate and rhythm Lungs: clear to auscultation and normal air movement Airway: Mallampati scale class II Neurological: alert and oriented
[2024-07-18 09:30] LABS: Rapid Plasma Reagin Non-Reactive (NonReactive)
--- NOTE | 2024-07-18 09:38 | WPDOBADMIT ---
Obstetrics - Admit Note Admission Note: record reviewed. No pertinent additions to the history and/or any subsequent changes in the physical findings that are not consistent with the expected course of the were found. Additions to the history and/or subsequent changes in the physical findings follow. None. Here for medical induction of labor. Cervix 4/50/-2.AROM with clear fluid. heart tones category 1. Pitocin infusing. Comfortable with epidural.
--- NOTE | 2024-07-18 13:28 | P.PCNOB_ITS ---
OB - Vaginal Delivery Note Procedure Delivery date: 07/18/24 Events: Elective Induction of Labor Induction method: AROM and Per Pitocin Protocol Delivery monitor: External FHT and External Uterine Route of delivery: Episiotomy description: None Laceration Description: Periurethral, Perineal - 1st Degree and Labial (inner bilateral labial) Delivery repair: vicryl (3-0) Specimen: No Quantitative Blood Loss (ml): 50 Anesthesia type: Epidural Disposition: Floor Complications: No immediate complications [place] Baby Date of : 07/18/24 Gestational Age by Date: 39 (39 3/7) Infant gender: Male presentation: vertex position: Right Occiput Anterior Placenta delivery description: Spontaneous Cord Vessel Description: 3 Vessels and Delayed Cord Clamping score one minute: 8 score five minutes: 9
--- NOTE | 2024-07-18 13:30 | P.DS_ITS ---
DS: Admitting Diagnosis Discharge Date 07/20/24 Admitting Diagnosis IUP 39 3/ MIL DS: Discharge Diagnosis Discharge Diagnosis (1) (normal spontaneous vaginal delivery): Code(s): O80 - Encounter for full-term uncomplicated delivery Status: Acute OB - DS: Summary OB Procedures : Ultrasound OB Procedures Intrapartum: Spontaneous Vag Delivery OB Procedures: : None Peripartum Data Laceration Description: Periurethral, Perineal - 1st Degree and Labial (inner bilateral labial) Episiotomy description: None complications: none Status at Discharge Functional status at discharge: independent ambulation Overall status at discharge: patient is progressing back to baseline Time Spent with Patient Time attestation: Total time spent providing and/or coordinating discharge services: DS: Data Data Completed and Pending Labs on day of discharge: Labs from last 24 hours 07/18/24 05:28 WBC 9.4 RBC 3.94 L Hgb 12.8 Hct 37.9 MCV 96.2 MCH 32.5 MCHC 33.8 RDW 13.7 Plt Count 196 MPV 10.3 Immature Gran % (Auto) 0.4 Neut % (Auto) 64.6 Lymph % (Auto) 28.2 [place] % (Auto) 6.3 Eos % (Auto) 0.3 Baso % (Auto) 0.2 Lymph # (Auto) 2.64 [place] # (Auto) 0.6 Eos # (Auto) 0.0 Baso # (Auto) 0.0 Abs Immat Gran (auto) 0.04 H Absolute Neuts (auto) 6.1 Absolute Nucleated RBC 0.000 Nucleated RBC % 0.0 RPR Non-reactive HIV 1&2 Ab/P24 Ag 4thGn Negative Blood Type O Positive Antibody Screen Negative Discharge Plan Discharge Attending physician on discharge: Gayle Patton Discharging Clinician: Gayle Patton Anticipated Discharge Date/Time: 07/20/24 13:31 Patient Disposition: Home, Self-Care Activity: may shower Diet: regular Discharge Instructions: Education: Mom and Baby Guide Given to: Follow-Up: Call your delivering provider's office for an appointment to be seen in: Mom and baby should come to the [facility] for the follow-up appointment. Appointment Date/Time: at What to expect at your follow-up visit: Call [phone] if you are unable to keep your appointment time. BREAST CARE: * Wear a snug supportive bra. * For engorgement discomfort: Breast Feeding: * Apply warm moist washcloths * Express milk as needed to relieve engorgement * Wear loose clothing Bottle Feeding: * May apply ice packs * For sore nipples: * Identify correct latch-on * Apply warm moist washcloths before and after nursing * Air dry nipples after nursing * May apply Lansinoh cream to nipples ABDOMINAL INCISION: (if applicable) * Allow incision to air dry * Do NOT use lotions for powders on your incision * When showering, allow soap and water to run over the incision, but do not wash incision EPISIOTOMY/PERINEAL CARE: * Until bleeding stops, use your otto bottle after urinating * Change your pad frequently throughout the day * You may take sitz baths several times a day (fill your bathtub with warm water and soak for 20 minutes.) Do NOT bathe in the water * No tub baths until seen by your physician - You may shower ACTIVITY: * Rest as much as possible. * Do not exercise or lift anything heavier than your baby (such as laundry or other children.) * Avoid stairs or driving as much as possible. * Do not put anything into the vagina. No douching, tampons, or sexual activity until seen by physician. NOTIFY PHYSICIAN IF YOU HAVE ANY QUESTIONS OR IF ANY OF THE FOLLOWING SYMPTOMS OCCUR: * If your episiotomy or incision becomes red, swollen, or more painful than what you have experienced in the hospital. * If your vaginal bleeding becomes foul smelling. * If your vaginal bleeding becomes more heavy than a period or if your bleeding changes from pink to bright red. However, you may pass an occasional walnut- sized clot once or twice for the first week . * If you experience a sharp, shooting pain in you calves. * If you discover a hard, reddened area on your breast or if you experience flu- like symptoms. DIET: * Eat regular, well-balanced meals. * Drink plenty of fluids daily. If , drink to thirst. Pumping Plan? You are exclusively pumping at discharge. It is important to pump regularly and consistently to help maintain your milk supply. Regular milk removal is necessary for continued milk production. You need to pump at least 8 times every 24 hours. You can use hands on pumping to get better results with pumping and to encourage your breasts to produce more milk. Hands on pumping instructions:? * Massage your breasts before applying the breast pump.? * Pump both breasts at once. Use your hands to massage and compress while you pump.? * Stop pumping when the milk stops flowing? * Massage your breasts again? * End the pumping session by pumping or hand expressing one breast at a time while massaging and compressing your breast. Go back and forth between each breast until the milk stops flowing.? * Allow 25 minutes to complete this routine??? It is important to be sure you have a well-fitted pump flange. Consult your pump manual for recommended flange sizing or consult a professional.?? YOU SHOULD SET YOUR PUMP TO THE HIGHEST COMFORTABLE LEVEL. INCREASE THE SUCTION GRADUALLY UNTIL YOU REACH THE CORRECT SETTING. PUMPING SHOULD NOT HURT.? ? CONSULT YOUR PUMP MANUAL FOR GUIDANCE ON PUMP SETTINGS AND FUNTIONS. MOST PUMPS RECOMMEND 1-2 MINUTES OF THE QUICK ?MASSAGE? MODE, THEN SWITCHING TO THE SLOWER ?EXPRESSION? MODE FOR THE REMAINDER OF THE PUMPING SESSION.?Pump each breast for 10-15 minutes. Pumping will help stimulate your breasts to produce milk.? Follow the collection and storage sheet given to you in the Mom and Baby Guide. Remember to keep track of all feedings/elimination on the blue worksheet provided.? ? Clean your pump parts between each pumping session according to the guidelines in your pump manual. It is recommended that you use a basin that is reserved for washing pump parts that is separate from your sink to prevent contamination. If you are pumping for an ill or infant, you should disinfect your pump parts once a day by boiling them in hot water for 5 minutes after cleaning.? ? Ways to increase your milk supply:? * Increase frequency of pumping (10-12 times every 24 hours)? * Lots of skin to skin (if is able), especially before pumping? * Use warm washcloths before pumping and gentle breast massage before and during pumping? * Reduce stress, relax with music, get plenty of rest, and drink to thirst? * Warm pump flanges with warm water before pumping? * Pump until the milk stops flowing, then pump for 2 more minutes to fully empty the breast? * Pump at least once through the night, milk shouldn?t remain in the breast for longer than 4 hours? * Power pumping: Pump for 15-20 minutes, rest for 10 minutes, pump for 10, rest for 10, pump for 10. Do this routine 1-2 times a day for several days or until you notice an increase in milk supply. Pump normally between power pumping sessions.? ? You may contact the Team at [phone] for questions and appointments.? These discharge instructions have been explained to me and I have received a copy.? Patient Instructions: Your Baby (DC), Vaginal Delivery (DC) Patient Language: Belgian Stand Alone Forms: General Discharge Information Follow-up/Referrals: Gayle Patton MD [Physician] - 6 Weeks Discharge Medications: Continued PNV cmb#95-ferrous fumarate-FA [] 28 mg iron- 800 mcg tablet 1 tablet PO DAILY cholecalciferol (vitamin D3) [Vitamin D3] 50 mcg (2,000 unit) tablet 4,000 unit PO DAILY Date of admission: 07/18/24 05:00 Primary Care Provider: PHYSICIAN,[facility] Admitting Provider: Gayle Patton Attending physician on admission: Gayle Patton Condition: Stable
[2024-07-18] MEDS: OXYTOCIN 30 UNITS/NS 500 ML 30 UNITS/500 ML BAG 125 UNITS IV CONT (13:42)
[2024-07-18] MEDS: WITCH HAZEL 40 PADS 1 PAD TOPICAL (16:15)
[2024-07-18] MEDS: BENZOCAINE 20% AER SPR (*SP) 56 GM CAN 1 SPRAY TOPICAL (16:15)
--- NOTE | 2024-07-18 16:30 | OBPPTRN ---
Patient transferred to post room #287 via wheelchair. Support person present. Oriented to unit, room, information board, rooming in, admission packet and security measures. Patient verbalizes understanding.
[2024-07-18] MEDS: DOCUSATE SODIUM 100 MG CAPSULE PO (20:31)
[2024-07-18] MEDS: ACETAMINOPHEN 325 MG TABLET 650 MG PO (20:32)
[2024-07-19 01:10] VITALS: BP 112/88; PULSE 78; RESP 16; TEMP 37.1; O2SAT 99
[2024-07-19 04:39] VITALS: BP 111/95; PULSE 80; RESP 16; TEMP 36.1; O2SAT 99
[2024-07-19 04:53] LABS: Hematocrit 39.9 % (37.0-47.0); Hemoglobin 13.2 g/dL (12.0-15.0)
[2024-07-19] MEDS: IBUPROFEN 600 MG TABLET PO ×3 (05:19→19:38)
[2024-07-19] MEDS: ACETAMINOPHEN 325 MG TABLET 650 MG PO ×2 (05:21→14:33)
[2024-07-19 08:45] VITALS: BP 125/81; PULSE 89; RESP 16; TEMP 36.9; O2SAT 99
[2024-07-19] MEDS: LANOLIN (LANSINOH) 7.5 GM CREAM 1 APPLIC TOPICAL (08:49)
[2024-07-19] MEDS: MULTIVIT/MIN/PREN/FOL AC/IRON TABLET 1 TAB PO (08:49)
[2024-07-19] MEDS: DOCUSATE SODIUM 100 MG CAPSULE PO ×2 (08:49→19:40)
--- NOTE | 2024-07-19 10:15 | P.PNOB_ITS ---
OB - PN: Subj Subjective Date/time seen: 07/19/24 10:15 Patient comments: no complaints and pain well controlled baby status: other (Had some yellow green vomit and pediatrics wants to observe overnight. Normal x-ray); no nursing well OB - PN: Obj Data Labs 07/19/24 04:45 Labs: Laboratory Results - last 24 hr 07/19/24 04:45 Hgb 13.2 Hct 39.9 OB - PN A/P Plan day: 1 Plan: routine care Time Spent With Patient Time: Total time spent is greater than 50% in coordination of care (as documented) at patient's floor/unit and/or counseling patient: Exam 2 : Bimanual exam- vagina & uterus: other (Uterus firm, nt @U)
[2024-07-19 11:50] VITALS: BP 129/87; PULSE 91; RESP 16; TEMP 36.4; O2SAT 99
--- NOTE | 2024-07-19 12:00 | PC.NURSE ---
Mother verbalizes she is able to independently latch with appropriate positioning and alignment. She denies nipple pain and is responsively . She states that sometimes on the right nipple baby pinches down so she breaks the latch and starts over. Reinforced this is correct and that she shouldn't allow baby to feed with a painful latch. Reviewed skin to skin to calm and regulate baby and that it is ok to take a break from trying to latch if it isn't working. Infant is currently meeting outcomes for weight, output, jaundice, blood sugar and feeding frequencies of 8-12 times in 24 hours. Mother declines any additional assistance or education at this time. Mother is encouraged to call for assistance if her doesn?t latch, pain with latching, questions or concerns. Mother voiced understanding of information shared along with the mom/baby guide for an additional resource. Reported to the Primary RN.
--- NOTE | 2024-07-19 14:06 | WPDANLDPN2 ---
Anes-Prog Note L&D Date/Time: 07/19/24 14:06 Neuro status: Neuro function grossly intact. Vital Signs: Last Vital Signs Temp 36.9 C 07/19/24 08:45 Pulse 89 07/19/24 08:45 Resp 16 07/19/24 08:45 BP 125/81 07/19/24 08:45 Pulse Ox 99 07/19/24 08:45 O2 Del Method Room Air 07/18/24 20:30 Pain score (VAS): 2 I/O: Intake & Output 07/18/24 07/19/24 07/19/24 23:59 07:59 15:59 Intake Total 240 Balance 240 Patient feedback: Patient satisfied with anesthetic care.
[2024-07-19 20:25] VITALS: BP 105/54; PULSE 78; RESP 16; TEMP 36.6; O2SAT 96
[2024-07-20] MEDS: IBUPROFEN 600 MG TABLET PO ×2 (04:02→10:25)
[2024-07-20] MEDS: ACETAMINOPHEN 325 MG TABLET 650 MG PO ×2 (04:03→10:25)
--- NOTE | 2024-07-20 07:43 | P.PNOB_ITS ---
OB - PN: Subj Subjective Date/time seen: 07/20/24 07:43 Patient comments: no complaints and pain well controlled OB - PN: Obj Data Labs 07/19/24 04:45 OB - PN A/P Plan day: 2 Plan: routine care, discharge home, follow up 6 weeks and other (condoms until vasectomy) Time Spent With Patient Time: Total time spent is greater than 50% in coordination of care (as documented) at patient's floor/unit and/or counseling patient: Exam 2 : Bimanual exam- vagina & uterus: other (Uterus firm, nt @U)
[2024-07-20 08:00] VITALS: BP 125/87; PULSE 77; RESP 16; TEMP 36.4; O2SAT 100
[2024-07-20] MEDS: DOCUSATE SODIUM 100 MG CAPSULE PO (09:04)
[2024-07-20] MEDS: MULTIVIT/MIN/PREN/FOL AC/IRON TABLET 1 TAB PO (09:04)
--- NOTE | 2024-07-20 09:15 | PC.NURSE ---
Consulted with mother concerning needs and she shared her ability to independently latch infant optimally without pain. Mother is feeding appropriately for growth of and understands stimulating to eat if needed. has had appropriate feedings in the last 24 hours meets the outcomes for weight, output, blood sugar and jaundice at this time. Reinforced understanding of milk production, transition of milk, signs of adequate intake, transition of stool, prevention/relief of engorgement, plugged ducts, mastitis, responsive watching for feeding cues, the different methods of stimulating to breastfeed 1-3 hours after the start of the last feeding, community resources (declines [facility] referral), and when to call a provider using the resource of the feeding sheet along with the mom and baby guide. She has a breast pump for home use if needed. Mother voiced understanding of the information shared, is confident to continue effectively her at home, when to call for assistance, denies any additional assistance or education at this time. Reported to the Primary RN.
== END 2024-07-20 11:15 | disposition home or self-care (01) | DRG 807 ==
LOC: ANHLDR 13:31 → ANHOB2 16:57
PROVIDERS: Admitting Provider Obstetrics & Gynecology Gynecology; Visit Provider Obstetrics & Gynecology Gynecology
DX: O70.0 First degree perineal laceration during delivery (principal); Z37.0 Single live birth; Z3A.39 39 weeks gestation of pregnancy
CPT/HCPCS: 36415; 85014; 85018; 85025; 86592; 86703; 86850; 86900; 86901; A9270; G0432; J2590; J2795; J7120

== ENCOUNTER 2024-10-18 01:38 | Day surgery (SDC) | payer OTHER, SELFPAY ==
[2024-10-13 12:44] VITALS: BMI 30.7
--- NOTE | 2024-10-13 12:45 | PC.NURSE ---
Report to the Outpatient Waiting Room, entrance under the green pavilion located off [facility], at time _0930_ on date _[id number]_. Planned Procedure Time: _1030_. Time changes happen often and if your time is changed the preop area will call you the afternoon before. - You and your visitor will be asked to self-screen and do not enter if you have any COVID symptoms. Please call surgeon if you need to reschedule. - A mask is optional within the hospital at this time. No smoking, or chewing tobacco (or any form of nicotine). Ok for light breakfast. Take only the following medications with a SIP of water on the morning of surgery: ___Ok for vitamin.____ DO NOT STOP ANY OF YOUR OTHER PRESCRIPTION MEDICATIONS PRIOR TO SURGERY EXCEPT THE FOLLOWING Hold all vitamins and supplements for 3 days per anesthesiologist. Medications to discontinue per physician Date to take last dose Please no make-up, nail indonesian, hairspray, perfume, deodorant, or body powder the day of surgery. No jewelry (including any body piercings) or valuables the day of surgery, leave them at home. Please take a shower or bath the night before, or the morning of, surgery with an antibacterial soap. Wear comfortable, loose fitting clothing. - Jewelry must be removed prior to entering the operating room. Rings and piercings that are not removed may be cut off. - The hospital will not accept responsibility for valuables. - Please leave all valuables, including medications, at home the day of surgery. Ok to drive and resume normal activities after surgery. Follow any additional instructions given to you from your surgeon. Telephone instructions given to __Silvia___and asked if any additional questions and then verbalized understanding. Patient advised to call surgeon office or pre surgery nurse liaison [phone] if any additional questions.
--- NOTE | 2024-10-18 08:09 | P.HP_ITS ---
History of Present Illness History of Present Illness Consent: Risks, benefits, and alternatives have been discussed and questions answered. Patient agrees to proceed with procedure. Chief complaint: TOMER 2 and 3 Narrative: Silvia Ellison is a 28 year old female with abnormal Pap smear during . She underwent colposcopic examination and there was a small area aceto-white epithelium at 7:00 a.m.. No biopsy was performed. Pap at that time atypical squamous cells with rule out high-grade. Repeat Pap smears at 24 weeks was the same reading and Pap smear at 34 weeks was low-grade squamous intraepithelial lesion. Postoperative colposcopy and Pap smear showed no abnormalities on colposcopy. Pap smear was also normal. ECC done at the same time showed TOMER 3. Was recommended to undergo LEEP with a top pad. Risks of infection, bleeding, injury to surrounding tissue, future complications including cervical incompetence and stenosis are reviewed. Patient voices understanding and agrees to proceed. Due to insurance the procedure was being done at the hospital under local. Review of Systems Review of Systems: not repeated day of surgery; patient states no changes in status [facility] Past Medical History Medical History (Updated 10/18/24 @ 08:13 by Gayle Patton MD) (normal spontaneous vaginal delivery) x2 Surgical History Surgical History (Updated 10/18/24 @ 08:13 by Gayle Patton MD) History of ankle surgery right ankle 2006 Family History Family History Father Acute myocardial infarction Grandparent Brain cancer Social History Social History Smoking status: Never smoker Second hand tobacco smoke exposure: No Alcohol intake: current Substance use: never Do You Feel Safe in your Home?: Yes Lack of Transportation: No Lack of Food: Never True Current Housing: I Have Housing Concerned About Future Housing: No Difficulty Paying Gas/Electric Bills: No Difficulty Paying for Meds: No Currently Unemployed: No Education: High School Diploma/GED Difficulty w/ Childcare or Family Care: No Living arrangements: with family Spiritual care concerns: No Meds Home Medications and Allergies Home Medications Medication Instructions Recorded Confirmed Type vit no.95-ferrous 1 tablet PO DAILY 06/09/24 10/13/24 History fumarate 28 mg-folic acid 800 mcg tablet () Allergies Allergy/AdvReac Type Severity Reaction Status Date / Time No Known Allergies Allergy Verified 10/13/24 12:36 Exam Const: General: healthy appearing and alert Orientation/consciousness: patient oriented x3 Resp: Effort & Inspection: normal respiratory effort Auscultation: clear to auscultation bilaterally Cardio: Rate: regular rate Rhythm: regular rhythm GI: GI Palp: Yes Soft to palpation, No Tenderness to palpation present (GI) and No Palpable mass present : External Female Exam: normal external appearance Speculum Exam - Vagina: normal appearance of the vagina and normal vaginal discharge Speculum Exam - Cervix: normal appearance of the cervix Bimanual exam- vagina & uterus: uterine size normal and consistency normal Bimanual Exam- Adnexa, other: normal adnexae and No adnexal tenderness Neuro: General: patient oriented x3 Assessment and Plan Assessment and plan (1) 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
--- NOTE | 2024-10-18 08:09 | WPDHPUPDATE1 ---
History and Physical Update Update Date/Time: 10/18/24 08:09 History and Physical has been reviewed, including an updated exam of the patient. There are NO changes in the patient's condition. Risks, benefits, and alternatives have been discussed and questions answered. Patient agrees to proceed with procedure.
[2024-10-18 09:30] VITALS: BP 130/81; PULSE 94; RESP 16; TEMP 36.4; O2SAT 99; BMI 30.4
[2024-10-18] MEDS: ACETAMINOPHEN 500 MG TABLET 1000 MG PO (09:50)
[2024-10-18 09:53] LABS: BEDSIDEPREGUCG Negative (Negative)
[2024-10-18 10:45] VITALS: BP 118/78; PULSE 85; RESP 14; O2SAT 99
[2024-10-18] MEDS: LIDO 1%/EPINEPHRINE 1:100,000 50 ML VIAL INFILTRATE (10:49)
[2024-10-18 10:57] VITALS: BP 119/70; PULSE 86; RESP 16; O2SAT 99
[2024-10-18] MEDS: FERRIC SUBSULFATE 8 ML SOLUTION WITH APPLICATOR TOPICAL (10:58)
[2024-10-18 11:07] VITALS: BP 124/61; PULSE 89; RESP 16; O2SAT 98
[2024-10-18 11:11] VITALS: BP 124/67; PULSE 80; RESP 14; O2SAT 99
--- NOTE | 2024-10-18 11:13 | W.PM.PROC2 ---
Procedure Note - Detailed Date of Procedure 10/18/24 Pre-op Diagnosis TOMER 3 on ECC Post-op Diagnosis Same Procedure Performed LEEP with top-hat Surgeon Gayle Patton MD Anesthesia Local Findings Grossly normal-appearing cervix Description of Procedure The patient was taken to the operating room and placed in the dorsal lithotomy position. She was prepped. The bivalve coated speculum was placed in the vagina the cervix injected in each quadrant with 1% lidocaine with epinephrine. Once anesthesia was deemed adequate a 2x1cm LEEP was performed using 60 w of cutting power. This was marked at 12 with a suture. A 2nd 1x1 top hat was performed with a single pass again using 60 w of cutting power. Hemostasis was obtained using the rollerball as well as Monsel's and pressure. Once hemostasis was deemed adequate the patient was taken down from lithotomy and taken to the recovery room. Sponge, needle, and instrument counts are correct per the OR staff. Estimated Blood Loss 25 Drains No Packing No Pathology Yes (LEEP marked at 12; top hat marked at 12) Complications No immediate complications Condition Stable Disposition PACU
== END 2024-10-18 11:24 | disposition home or self-care (01) ==
PROVIDERS: Visit Provider Obstetrics & Gynecology Gynecology
PROC: 0UBC7ZZ Excision of Cervix, Via Natural or Artificial Opening (ICD-10-PCS; CPT 57522; principal; 2024-10-18 10:30)
DX: D06.9 Carcinoma in situ of cervix, unspecified (principal)
CPT/HCPCS: 57522; 88307; A9270; J2004